=== PATIENT | male | born 1970 | race Two or more races ===

== ENCOUNTER 2025-02-24 06:00 | Day surgery (SDC) | payer OTHER ==
[2025-02-16 12:21] VITALS: BP 135/79
[~2025-02-24] VITALS: Ht 175.3 cm; Wt 104.3 kg
[2025-02-24] MEDS ORDERED: BUPIVACAINE HCL/Mpf 0.5% 10ML VIAL ONE (06:56)
[2025-02-24] MEDS ORDERED: LIDOCAINE HCL 1%/EPINEPHRINE 20ML VIAL IJ ONE (06:56)
[2025-02-24] MEDS ORDERED: HEMOSTATIC MATRIX 1 KIT KIT TOP ONE (06:56)
[2025-02-24] MEDS ORDERED: DIBUCAINE 30 GM TUBE ONE (06:56)
[2025-02-24] MEDS ORDERED: POVIDONE-IODINE 118 ML BOTT TOP ONE (06:56)
[2025-02-24] MEDS ORDERED: METRONIDAZOLE/SODIUM CHLORIDE 500 MG/100 ML PIGGYBACK IV ONE (06:57)
[2025-02-24] MEDS ORDERED: CEFTRIAXONE SODIUM 2,000 MG VIAL ONE (06:57)
[2025-02-24] MEDS ORDERED: COLACE100 MG PO (09:27)
[2025-02-24] MEDS ORDERED: TRAM1TAB98 PO (09:27)
[2025-02-24] MEDS ORDERED: NEURONTIN300 MG PO (09:27)
== END 2025-02-24 12:30 | disposition home or self-care (01) ==
LOC: CIR.AMB 06:00
PROVIDERS: ATTEND Surgery
DX: K60.1 Chronic anal fissure (principal); K62.4 Stenosis of anus and rectum; K62.89 Other specified diseases of anus and rectum; Z91.013 Allergy to seafood